=== PATIENT | female | born 1980 | race Caucasian/White ===

== ENCOUNTER → 2022-02-07 | Outpatient (CLI) | payer BC, OTHER ==
[2022-02-07 16:14] LABS: FREE T4 1.22 NG/DL (0.76-1.46); THYROID STIMULATING HORMONE 1.71 uIU/ML (0.358-3.740)
== END ==
LOC: M PLALAB 13:30
PROVIDERS: ATTEND Nurse Practitioner Adult Health
DX: E06.3 Autoimmune thyroiditis (principal)

== ENCOUNTER 2022-03-03 18:13 | Emergency (ER) | payer BC, OTHER ==
[~2022-03-03] VITALS: Ht 167.6 cm; Wt 87.7 kg
[2022-03-03] MEDS ORDERED: FOLI800C PO (18:32)
[2022-03-03] MEDS ORDERED: SYNT125T PO (18:32)
[2022-03-03] MEDS ORDERED: D3 +TAB PO (18:32)
[2022-03-03] MEDS ORDERED: MULT-90 PO (18:32)
[2022-03-03] MEDS ORDERED: [UNRECOGNIZED DRUG - CODE] PO (18:32)
[2022-03-03 19:06] LABS: BASO # 0.1 10^3/uL (0.0-0.2); BASO % 0.9 % (0.0-1.0); EOS # 0.1 10^3/uL (0.0-0.5); EOS % 1.5 % (0.0-3.0); HEMATOCRIT 41.8 % (36.0-47.0); HEMOGLOBIN 13.5 g/dl (12.0-15.5); LYMPH # 2.6 10^3/uL (1.5-5.0); LYMPH % 31.5 % (24.0-44.0); MEAN CORPUSCULAR HEMOGLOBIN 28.7 pg (27.0-33.0); MEAN CORPUSCULAR HGB CONC 32.3 g/dl (32.0-36.5); MEAN CORPUSCULAR VOLUME 88.9 fl (80.0-96.0); MONO # 0.7 10^3/uL (0.0-0.8); MONO % 8.5 % (2.0-8.0); NEUTROPHILS # 4.7 10^3/uL (1.5-8.5); NEUTROPHILS % 57.5 % (36.0-66.0); PLATELET COUNT, AUTOMATED 230 10^3/uL (150-450); WHITE BLOOD COUNT 8.2 10^3/uL (4.0-10.0)
[2022-03-03 19:58] LABS: LDH LACTATE DEHYDROGENASE 152 U/L (120-246)
[2022-03-03 19:59] LABS: ALBUMIN 3.7 G/DL (3.2-5.2); ALKALINE PHOSPHATASE 120 U/L (46-116); ALT/SGPT 31 U/L (7.0-40); AST/SGOT 22 U/L (<34); BILIRUBIN,TOTAL 0.5 MG/DL (0.3-1.2); BLOOD UREA NITROGEN 19 MG/DL (9-23); CALCIUM LEVEL 9.5 MG/DL (8.5-10.1); CARBON DIOXIDE LEVEL 27 MMOL/L (20-31); CHLORIDE LEVEL 104 MMOL/L (98-107); CREATININE FOR GFR 0.61 MG/DL (0.55-1.30); GLOMERULAR FILTRATION RATE > 60.0 (>58); GLUCOSE, FASTING 92 MG/DL (60-100); POTASSIUM SERUM 4.2 MMOL/L (3.5-5.1); SODIUM LEVEL 139 MMOL/L (136-145); TOTAL PROTEIN 6.7 G/DL (5.7-8.2)
[2022-03-03 20:24] VITALS: BP 128/83
== END 2022-03-03 20:31 | disposition home or self-care (01) ==
LOC: M ED 18:13
DX: R59.0 Localized enlarged lymph nodes (principal); Z85.3 Personal history of malignant neoplasm of breast; E03.9 Hypothyroidism, unspecified; Z79.890 Hormone replacement therapy; Z79.899 Other long term (current) drug therapy; Z88.2 Allergy status to sulfonamides

== ENCOUNTER 2022-03-21 11:06 | Emergency (ER) | payer BC, OTHER ==
[~2022-03-21] VITALS: Ht 167.6 cm; Wt 87.0 kg
[2022-03-21 11:06] VITALS: BP_DIAS 58
[~2022-03-21 11:06] MED LIST: D3 +TAB PO; FOLI800C PO; IBUP80TA PO; MULT-90 PO; SYNT125T PO; [UNRECOGNIZED DRUG - CODE] PO; collagen
[2022-03-21 16:04] VITALS: BP_SYST 149
== END 2022-03-21 16:16 | disposition home or self-care (01) ==
LOC: M ED 11:06
DX: N83.291 Other ovarian cyst, right side (principal); Z86.19 Personal history of other infectious and parasitic diseases; Z85.3 Personal history of malignant neoplasm of breast; E03.9 Hypothyroidism, unspecified; Z79.890 Hormone replacement therapy; Z79.899 Other long term (current) drug therapy; Z88.2 Allergy status to sulfonamides

== ENCOUNTER → 2022-04-13 | Outpatient (CLI) | payer BC, OTHER ==
[~2022-04-13] MED LIST changes: +COQ-100C5 PO; +DOXY100T PO; +FLUC150T9 PO; +METR-265 PO; +NORE5TAB PO; +PRO1CAP PO; +PROB250C PO; +VALA500T5 PO; +VITA100093 PO
== END ==
LOC: M WHC 12:54
PROVIDERS: ATTEND Surgery
DX: M79.89 Other specified soft tissue disorders (principal)

== ENCOUNTER 2022-04-15 18:33 | Inpatient (IN) | payer BC, OTHER ==
[~2022-04-15] VITALS: Ht 165.1 cm; Wt 86.0 kg
[~2022-04-15 18:33] MED LIST changes: -COQ-100C5 PO; -DOXY100T PO; -FLUC150T9 PO; -METR-265 PO; -NORE5TAB PO; -PRO1CAP PO; -PROB250C PO; -VALA500T5 PO; -VITA100093 PO
[2022-04-16 01:15] LABS: BASO % 0.2 % (0.0-1.0); LYMPH # 0.5 10^3/uL (1.5-5.0); LYMPH % 2.8 % (24.0-44.0); MEAN CORPUSCULAR HEMOGLOBIN 29.2 pg (27.0-33.0); MEAN CORPUSCULAR HGB CONC 32.6 g/dl (32.0-36.5); MEAN CORPUSCULAR VOLUME 89.6 fl (80.0-96.0); MONO # 0.8 10^3/uL (0.0-0.8); MONO % 4.4 % (2.0-8.0); NEUTROPHILS # 16.6 10^3/uL (1.5-8.5); NEUTROPHILS % 92.2 % (36.0-66.0); PLATELET COUNT, AUTOMATED 241 10^3/uL (150-450)
[2022-04-16 01:30] LABS: LIPASE 26 U/L (12-53)
[2022-04-16 01:32] LABS: AMYLASE 75 U/L (30-118); BLOOD UREA NITROGEN 15 MG/DL (9-23); CALCIUM LEVEL 9.2 MG/DL (8.5-10.1); CARBON DIOXIDE LEVEL 24 MMOL/L (20-31); CHLORIDE LEVEL 103 MMOL/L (98-107); CREATININE FOR GFR 0.69 MG/DL (0.55-1.30); GLOMERULAR FILTRATION RATE > 60.0 (>58); GLUCOSE, FASTING 118 MG/DL (60-100); POTASSIUM SERUM 4.4 MMOL/L (3.5-5.1); SODIUM LEVEL 138 MMOL/L (136-145)
[2022-04-16 01:36] LABS: HCG, SERUM QUALITATIVE NEGATIVE (NEGATIVE)
[2022-04-16] MEDS ORDERED: NS 1,000 ML IV SCH (03:25)
[2022-04-16] MEDS ORDERED: MORPHINE 4 MG/ML 1ML VIAL IV ONE (03:25)
[2022-04-16] MEDS ORDERED: cefTRIAXone SOD 1 GM in D5W MINI-BAG PLUS 50 ML IV ONE (03:25)
[2022-04-16] MEDS ORDERED: ONDANSETRON 4MG 2ML VIAL IV ONE (04:05)
[2022-04-16] MEDS ORDERED: PRO1CAP PO (04:17)
[2022-04-16] MEDS ORDERED: NORE5TAB PO (04:18)
[2022-04-16] MEDS ORDERED: VITA100093 PO (04:18)
[2022-04-16] MEDS ORDERED: HOME MED LIST COMPLETE! XX SCH ×2 (04:20→12:10)
[2022-04-16] MEDS: NS 1,000 ML IV SCH ×2 (04:25→10:41)
[2022-04-16] MEDS: LEVOTHYROXINE 125MCG TABLET (0.125MG) PO SCH (06:00)
[2022-04-16] MEDS ORDERED: ENOXAPARIN 40MG/0.4ML SYRINGE (J1650 PER 10MG) SC SCH (09:00)
[2022-04-16] MEDS: ACETAMINOPHEN TAB 650MG DOSE (2X325MG) PO PRN ×2 (09:12→14:33)
[2022-04-16] MEDS ORDERED: KETOROLAC 30 MG/ML 1ML VIAL IV PRN (09:50)
[2022-04-16] MEDS ORDERED: MOM 30ML SUSPENSION UDC PO ONE (09:50)
[2022-04-16 10:17] VITALS: BP 134/67
[2022-04-16] MEDS: SENOKOT S TAB PO SCH ×2 (11:49→21:38)
[2022-04-16] MEDS ORDERED: COQ-100C5 PO (12:10)
[2022-04-16 16:00] VITALS: BP 141/70
[2022-04-16] MEDS: KETOROLAC 30 MG/ML 1ML VIAL IV PRN ×2 (16:40→23:09)
[2022-04-16] MEDS ORDERED: DEXTROSE 50% 50ML SYRINGE IV PRN (17:00)
[2022-04-16] MEDS ORDERED: GLUCAGON INJ 1MG VIAL SC PRN (17:00)
[2022-04-16] MEDS ORDERED: D5W/0.45% SODIUM CHLORIDE 1,000 ML IV SCH (17:00)
[2022-04-16] MEDS ORDERED: GLUCOSE 4GM CHEW TABLET PO PRN (17:00)
[2022-04-16] MEDS: DOXYCYCLINE HYCLATE 100 MG in D5W MINI-BAG PLUS 100 ML IV SCH (18:58)
[2022-04-16 20:00] VITALS: BP 134/61
[2022-04-16] MEDS ORDERED: CALCIUM CARBONATE 500 MG CHEW U/D PO PRN (20:50)
[2022-04-16] MEDS: valACYclovir HCL 500 MG TAB PO SCH (21:38)
[2022-04-16] MEDS: LR 1,000 ML IV SCH (21:38)
[2022-04-16] MEDS: metroNIDAZOLE 500 MG in IV 1 EA IV SCH (21:39)
[2022-04-17] VITALS: BP 134/64
[2022-04-17 04:00] VITALS: BP 134/63
[2022-04-17] MEDS: cefTRIAXone SOD 1 GM in D5W MINI-BAG PLUS 50 ML IV SCH (04:07)
[2022-04-17] MEDS: ACETAMINOPHEN TAB 650MG DOSE (2X325MG) PO PRN ×2 (04:25→13:13)
[2022-04-17] MEDS: metroNIDAZOLE 500 MG in IV 1 EA IV SCH ×3 (05:13→20:50)
[2022-04-17] MEDS: KETOROLAC 30 MG/ML 1ML VIAL IV PRN ×3 (05:13→21:39)
[2022-04-17] MEDS: LEVOTHYROXINE 125MCG TABLET (0.125MG) PO SCH (05:41)
[2022-04-17] MEDS: LR 1,000 ML IV SCH ×3 (06:00→20:49)
[2022-04-17] MEDS: DOXYCYCLINE HYCLATE 100 MG in D5W MINI-BAG PLUS 100 ML IV SCH ×2 (06:56→18:58)
[2022-04-17 07:19] LABS: HEMATOCRIT 36.9 % (36.0-47.0); MEAN CORPUSCULAR HEMOGLOBIN 28.6 pg (27.0-33.0); MEAN CORPUSCULAR HGB CONC 31.4 g/dl (32.0-36.5); MEAN CORPUSCULAR VOLUME 90.9 fl (80.0-96.0); PLATELET COUNT, AUTOMATED 213 10^3/uL (150-450); RED BLOOD COUNT 4.06 10^6/uL (4.00-5.40); WHITE BLOOD COUNT 11.2 10^3/uL (4.0-10.0)
[2022-04-17 07:27] LABS: HEMOGLOBIN 11.6 g/dl (12.0-15.5)
[2022-04-17 07:57] LABS: ALBUMIN 2.8 G/DL (3.2-5.2); ALKALINE PHOSPHATASE 75 U/L (46-116); ALT/SGPT 12 U/L (7.0-40); AST/SGOT 15 U/L (<34); BILIRUBIN,TOTAL 0.8 MG/DL (0.3-1.2); BLOOD UREA NITROGEN 12 MG/DL (9-23); CALCIUM LEVEL 8.8 MG/DL (8.5-10.1); CARBON DIOXIDE LEVEL 22 MMOL/L (20-31); CHLORIDE LEVEL 107 MMOL/L (98-107); CREATININE FOR GFR 0.61 MG/DL (0.55-1.30); GLOMERULAR FILTRATION RATE > 60.0 (>58); GLUCOSE, FASTING 98 MG/DL (60-100); POTASSIUM SERUM 4.1 MMOL/L (3.5-5.1); SODIUM LEVEL 139 MMOL/L (136-145); TOTAL PROTEIN 5.7 G/DL (5.7-8.2)
[2022-04-17 08:00] VITALS: BP 117/60
[2022-04-17] MEDS: SENOKOT S TAB PO SCH ×2 (08:40→21:00)
[2022-04-17] MEDS: valACYclovir HCL 500 MG TAB PO SCH ×2 (08:55→20:50)
[2022-04-17 13:00] VITALS: BP 132/62
[2022-04-17 20:00] VITALS: BP 126/58
[2022-04-18] VITALS: BP 134/71
[2022-04-18 04:00] VITALS: BP 124/78
[2022-04-18] MEDS: ACETAMINOPHEN TAB 650MG DOSE (2X325MG) PO PRN (04:35)
[2022-04-18] MEDS: cefTRIAXone SOD 1 GM in D5W MINI-BAG PLUS 50 ML IV SCH (06:00)
[2022-04-18] MEDS: LR 1,000 ML IV SCH (06:00)
[2022-04-18] MEDS: DOXYCYCLINE HYCLATE 100 MG in D5W MINI-BAG PLUS 100 ML IV SCH (06:00)
[2022-04-18] MEDS: metroNIDAZOLE 500 MG in IV 1 EA IV SCH (06:00)
[2022-04-18] MEDS: LEVOTHYROXINE 125MCG TABLET (0.125MG) PO SCH (06:05)
[2022-04-18 08:00] VITALS: BP 141/95
[2022-04-18] MEDS ORDERED: metroNIDAZOLE (FLAGYL) 500MG TABLET PO SCH (09:00)
[2022-04-18] MEDS: SENOKOT S TAB PO SCH (09:00)
[2022-04-18] MEDS ORDERED: DOXYCYCLINE HYCLATE 100MG TABLET PO SCH (09:00)
[2022-04-18] MEDS: valACYclovir HCL 500 MG TAB PO SCH (09:10)
[2022-04-18] MEDS ORDERED: DOXY100T PO (10:25)
[2022-04-18] MEDS ORDERED: METR-265 PO (10:25)
[2022-04-18] MEDS ORDERED: VALA500T5 PO (10:25)
[2022-04-18] MEDS ORDERED: PROB250C PO (11:07)
[2022-04-18] MEDS ORDERED: FLUC150T9 PO (11:09)
== END 2022-04-18 13:30 | disposition home or self-care (01) | DRG 531 ==
LOC: M ED 18:33 → M ED INP 04-16 04:23 → ENRESERV 04-16 09:10 → M PED 04-16 10:17
PROVIDERS: ADMIT Family Medicine; ATTEND Internal Medicine
DX: N70.93 Salpingitis and oophoritis, unspecified (principal); K56.7 Ileus, unspecified; N39.0 Urinary tract infection, site not specified; E03.9 Hypothyroidism, unspecified; R21 Rash and other nonspecific skin eruption; N83.511 Torsion of right ovary and ovarian pedicle; N83.201 Unspecified ovarian cyst, right side; B95.5 Unspecified streptococcus as the cause of diseases classified elsewhere; K59.00 Constipation, unspecified; B00.9 Herpesviral infection, unspecified; Z85.3 Personal history of malignant neoplasm of breast; Z90.13 Acquired absence of bilateral breasts and nipples; Z79.890 Hormone replacement therapy; Z79.899 Other long term (current) drug therapy; Z88.2 Allergy status to sulfonamides

== ENCOUNTER → 2022-04-23 | Outpatient (CLI) | payer BC, OTHER ==
[~2022-04-23] MED LIST changes: +COQ-100C5 PO; +DOXY100T PO; +FLUC150T9 PO; +METR-265 PO; +NORE5TAB PO; +PRO1CAP PO; +PROB250C PO; +VALA500T5 PO; +VITA100093 PO
== END ==
LOC: M PLALAB 08:29
PROVIDERS: ATTEND Surgery
DX: Z85.3 Personal history of malignant neoplasm of breast (principal); Z80.3 Family history of malignant neoplasm of breast; Z13.9 Encounter for screening, unspecified

== ENCOUNTER → 2022-05-01 | Outpatient (CLI) | payer BC, OTHER ==
[~2022-05-01] MED LIST changes: +CVS1CAP2 PO; +PROHANCE 279.3MG/ML 15ML VIAL ONE; +PROHANCE 279.3MG/ML 5ML VIAL ONE; +VALT1TAB PO; -collagen; +collagen PO
== END ==
LOC: M PLAIMG 13:13
PROVIDERS: ATTEND Surgery
DX: R59.0 Localized enlarged lymph nodes (principal); Z98.82 Breast implant status; M79.89 Other specified soft tissue disorders; Z85.3 Personal history of malignant neoplasm of breast
CPT/HCPCS: A9576; C8908

== ENCOUNTER → 2022-05-07 | Outpatient (CLI) | payer BC, OTHER ==
[~2022-05-07] MED LIST changes: +COLA100C5 PO; +ONDA4TAB6 PO; +PERC5TAB12 PO; -PROHANCE 279.3MG/ML 15ML VIAL ONE; -PROHANCE 279.3MG/ML 5ML VIAL ONE
== END ==
LOC: M EKG 09:52
PROVIDERS: ATTEND Internal Medicine
DX: Z01.818 Encounter for other preprocedural examination (principal); R00.1 Bradycardia, unspecified

== ENCOUNTER → 2022-05-07 | Outpatient (CLI) | payer BC, OTHER ==
[~2022-05-07] MED LIST changes: -COLA100C5 PO; -ONDA4TAB6 PO; -PERC5TAB12 PO
== END ==
LOC: M LABSMTC 09:19
PROVIDERS: ATTEND Anesthesiology
DX: Z01.812 Encounter for preprocedural laboratory examination (principal); Z11.52 Encounter for screening for COVID-19

== ENCOUNTER → 2022-05-08 | Outpatient (REF) | payer BC, OTHER ==
[~2022-05-08] MED LIST changes: +COLA100C5 PO; +ONDA4TAB6 PO; +PERC5TAB12 PO
== END ==
LOC: M SFHCWAGY 17:15
PROVIDERS: ATTEND Obstetrics & Gynecology
DX: Z12.4 Encounter for screening for malignant neoplasm of cervix (principal); R87.615 Unsatisfactory cytologic smear of cervix
CPT/HCPCS: 87624; G0123

== ENCOUNTER → 2022-05-10 | Outpatient (CLI) | payer BC, OTHER | LOC: M WHC 10:41 | PROVIDERS: ATTEND Obstetrics & Gynecology | DX: N83.201 Unspecified ovarian cyst, right side (principal); N83.202 Unspecified ovarian cyst, left side ==

== ENCOUNTER 2022-05-11 10:21 | Day surgery (SDC) | payer BC, OTHER ==
[~2022-05-11] VITALS: Ht 167.6 cm; Wt 83.9 kg
[~2022-05-11 10:21] MED LIST changes: -COLA100C5 PO; -ONDA4TAB6 PO; -PERC5TAB12 PO
[2022-05-11] MEDS ORDERED: LR 1,000 ML IV SCH ×2 (10:40→17:40)
[2022-05-11 11:26] LABS: HEMATOCRIT 43.5 % (36.0-47.0); MEAN CORPUSCULAR HEMOGLOBIN 29.2 pg (27.0-33.0); MEAN CORPUSCULAR HGB CONC 32.2 g/dl (32.0-36.5); MEAN CORPUSCULAR VOLUME 90.6 fl (80.0-96.0); PLATELET COUNT, AUTOMATED 236 10^3/uL (150-450); WHITE BLOOD COUNT 5.9 10^3/uL (4.0-10.0)
[2022-05-11] MEDS ORDERED: ONDANSETRON 4MG 2ML VIAL As Ordered ONE (13:02)
[2022-05-11] MEDS ORDERED: LIDOCAINE 2% 100MG/5ML SDV (FOR ANES.) As Ordered ONE (13:02)
[2022-05-11] MEDS ORDERED: MIDAZOLAM INJ 2MG/2ML VIAL As Ordered ONE (13:02)
[2022-05-11] MEDS ORDERED: propofoL 200 MG/20 ML VIAL As Ordered ONE (13:02)
[2022-05-11] MEDS ORDERED: fentaNYL 100 MCG/2 ML INJECTION As Ordered ONE ×2 (13:02→15:48)
[2022-05-11] MEDS ORDERED: ROCURONIUM BROMIDE 50MG/5ML VIAL As Ordered ONE ×2 (13:02→15:17)
[2022-05-11] MEDS ORDERED: HYDROmorphone HCL 2MG/ML 1ML VIAL As Ordered ONE (13:02)
[2022-05-11] MEDS ORDERED: KETOROLAC 60MG 2ML VIAL As Ordered ONE (13:02)
[2022-05-11] MEDS ORDERED: ACETAMINOPHEN 1000MG 100ML IV BAG As Ordered ONE (13:10)
[2022-05-11] MEDS ORDERED: BUPIVACAINE HCL 0.25% 30ML VIAL As Ordered ONE (14:10)
[2022-05-11] MEDS ORDERED: METHYLENE BLUE 0.5% (5MG/ML) 10 ML AMP (PROVAYBLUE) As Ordered ONE ×2 (14:10→14:20)
[2022-05-11] MEDS ORDERED: SILVER NITRATE APPLICATOR (1 = QTY 10) As Ordered ONE (14:12)
[2022-05-11] MEDS ORDERED: ePHEDrine SULFATE 25 MG/5 ML(5MG/ML) SYRINGE As Ordered ONE (15:10)
[2022-05-11] MEDS ORDERED: SUGAMMADEX SODIUM 500 MG/5 ML VIAL (BRIDION) As Ordered ONE (15:17)
[2022-05-11] MEDS ORDERED: DESFLURANE 240 ML INHALANT As Ordered ONE (15:41)
[2022-05-11] MEDS ORDERED: SEVOFLURANE INHAL SOLN 250 ML BTL As Ordered ONE (15:42)
[2022-05-11] MEDS ORDERED: ceFAZolin 2 GM/D5W 50 ML IV BAG As Ordered ONE (17:09)
[2022-05-11] MEDS ORDERED: oxyCODONE 5MG TAB PO PRN (17:40)
[2022-05-11] MEDS ORDERED: ONDANSETRON 4MG 2ML VIAL IV PRN (17:40)
[2022-05-11] MEDS ORDERED: fentaNYL 100 MCG/2 ML INJECTION IV PRN (17:40)
[2022-05-11] MEDS ORDERED: METOCLOPRAMIDE INJ 10MG/2ML VIAL IV PRN (17:40)
[2022-05-11 19:29] VITALS: BP 128/69
[2022-05-11] MEDS ORDERED: IBUP80TA PO (19:36)
[2022-05-11] MEDS ORDERED: PERC5TAB12 PO (19:37)
[2022-05-11] MEDS ORDERED: ONDA4TAB6 PO (19:38)
[2022-05-11] MEDS ORDERED: COLA100C5 PO (19:39)
== END 2022-05-11 19:39 | disposition home or self-care (01) ==
LOC: M SDC 10:21
PROVIDERS: ATTEND Obstetrics & Gynecology
DX: N83.202 Unspecified ovarian cyst, left side (principal); N80.122 Deep endometriosis of left ovary; N97.1 Female infertility of tubal origin; K66.0 Peritoneal adhesions (postprocedural) (postinfection); E06.9 Thyroiditis, unspecified; Z85.3 Personal history of malignant neoplasm of breast; Z92.21 Personal history of antineoplastic chemotherapy; Z90.13 Acquired absence of bilateral breasts and nipples; Z88.2 Allergy status to sulfonamides; Z79.899 Other long term (current) drug therapy; Z79.890 Hormone replacement therapy
CPT/HCPCS: 36415; 58350; 58558; 58662; 81025; 85027; 86850; 86900; 86901; 88305; J0131; J0690; J1100; J1170; J1885; J2250; J2405; J3010; Q9968; S0020

== ENCOUNTER → 2022-06-19 | Outpatient (CLI) | payer BC, OTHER ==
[~2022-06-19] MED LIST changes: +COLA100C5 PO; +ISOVUE-370 76% 100ML VIAL As Ordered ONE; +ONDA4TAB6 PO; +PERC5TAB12 PO
== END ==
LOC: M RADPRO 11:24
PROVIDERS: ATTEND Obstetrics & Gynecology
DX: N97.1 Female infertility of tubal origin (principal)
CPT/HCPCS: 58340; 74740; Q9967

== ENCOUNTER → 2022-06-21 | Outpatient (REF) | payer BC, OTHER ==
[~2022-06-21] MED LIST changes: -ISOVUE-370 76% 100ML VIAL As Ordered ONE
[2022-06-21 19:20] LABS: APPEARANCE, URINE CLEAR (CLEAR); BACTERIA, URINE AUTO NEGATIVE (NEGATIVE); BILIRUBIN, URINE AUTO NEGATIVE (NEGATIVE); BLOOD, URINE BLOOD NEGATIVE (NEGATIVE); COLOR, URINE YELLOW (YELLOW); GLUCOSE, URINE (UA) AUTO NEGATIVE (NEGATIVE); KETONE, URINE AUTO TRACE mg/dL (NEGATIVE); LEUKOCYTE ESTERASE, URINE AUTO NEGATIVE (NEGATIVE); NITRITE, URINE AUTO NEGATIVE (NEGATIVE); PROTEIN, URINE AUTO NEGATIVE (NEGATIVE); RBC, URINE AUTO 0 /HPF (0-3); SPECIFIC GRAVITY URINE AUTO 1.004 (1.002-1.035); SQUAMOUS EPITHELIAL CELL UR AU 0 /HPF (0-6); UROBILINOGEN, URINE AUTO 0.2 mg/dL (0.0-2.0); WBC, URINE AUTO 0 /HPF (0-3)
== END ==
LOC: M SFHCWAGY 17:45
PROVIDERS: ATTEND Obstetrics & Gynecology
DX: R30.0 Dysuria (principal)

== ENCOUNTER 2022-06-27 10:43 | Outpatient (RCR) | payer BC, OTHER | END 2022-06-29 | LOC: M PT 10:43 | PROVIDERS: ATTEND Surgery | DX: I89.0 Lymphedema, not elsewhere classified (principal) ==

== ENCOUNTER → 2022-08-08 | Outpatient (CLI) | payer BC, OTHER ==
[2022-08-08 18:17] LABS: C REACTIVE PROTEIN QUANTITATIV < 0.40 MG/DL (<1.0)
[2022-08-08 18:18] LABS: TOTAL T3 100.4 NG/DL (60.0-181.0)
[2022-08-08 18:19] LABS: FREE T3 3.1 PG/ML (2.3-4.2); RHEUMATOID FACTOR QUANT 6.9 IU/ML (<14); THYROID PEROXIDASE ANTIBODY 928 U/ML (<60.0); THYROID STIMULATING HORMONE 3.362 uIU/ML (0.55-4.78)
[2022-08-08 18:21] LABS: FREE T4 1.36 NG/DL (0.89-1.76)
== END ==
LOC: M PLALAB 15:35
PROVIDERS: ATTEND Nurse Practitioner Adult Health
DX: E06.3 Autoimmune thyroiditis (principal)

== ENCOUNTER → 2022-08-28 | Outpatient (POV) | payer BC, OTHER ==
[~2022-08-28] VITALS: Ht 167.6 cm; Wt 84.0 kg
[2022-08-28 09:15] VITALS: BP 125/70
== END ==
LOC: M IRPOV 09:04
PROVIDERS: ATTEND Radiology Diagnostic Radiology
DX: R22.43 Localized swelling, mass and lump, lower limb, bilateral (principal); E06.3 Autoimmune thyroiditis; Z85.3 Personal history of malignant neoplasm of breast; Z88.2 Allergy status to sulfonamides

== ENCOUNTER → 2023-01-28 | Outpatient (CLI) | payer BC, OTHER ==
[~2023-01-28] MED LIST changes: +ESTR1TAB PO; +NALT50TA4 PO; +OMEGCAP4 PO; +PROG1CAP8 PO
[2023-01-28 17:58] LABS: BASO # 0.2 10^3/uL (0.0-0.2); BASO % 0.7 % (0.0-1.0); EOS # 0.1 10^3/uL (0.0-0.5); EOS % 0.3 % (0.0-3.0); HEMATOCRIT 43.7 % (36.0-47.0); HEMOGLOBIN 14.1 g/dl (12.0-15.5); LYMPH # 2.4 10^3/uL (1.5-5.0); MEAN CORPUSCULAR HEMOGLOBIN 29.3 pg (27.0-33.0); MEAN CORPUSCULAR HGB CONC 32.3 g/dl (32.0-36.5); MEAN CORPUSCULAR VOLUME 90.7 fl (80.0-96.0); MONO # 0.8 10^3/uL (0.0-0.8); MONO % 3.8 % (2.0-8.0); NEUTROPHILS # 18.2 10^3/uL (1.5-8.5); NEUTROPHILS % 82.6 % (36.0-66.0); PLATELET COUNT, AUTOMATED 323 10^3/uL (150-450); RED BLOOD COUNT 4.82 10^6/uL (4.00-5.40)
[2023-01-28 18:16] LABS: FERRITIN 44.1 NG/ML (7.3-270.7); THYROID STIMULATING HORMONE 0.874 uIU/ML (0.55-4.78)
[2023-01-28 18:17] LABS: TOTAL 25(OH) VITAMIN D 38.4 NG/ML (20.0-100.0)
[2023-01-28 18:19] LABS: FREE T4 1.24 NG/DL (0.89-1.76); TOTAL IRON BINDING CAPACITY 341 UG/DL (250-425)
[2023-01-28 18:20] LABS: ALBUMIN 3.6 G/DL (3.2-5.2); ALKALINE PHOSPHATASE 152 U/L (46-116); ALT/SGPT 28 U/L (7.0-40); AST/SGOT 16 U/L (<34); BILIRUBIN,TOTAL 0.3 MG/DL (0.3-1.2); BLOOD UREA NITROGEN 23 MG/DL (9-23); CARBON DIOXIDE LEVEL 31 MMOL/L (20-31); CHLORIDE LEVEL 101 MMOL/L (98-107); CREATININE FOR GFR 0.55 MG/DL (0.55-1.30); GLOMERULAR FILTRATION RATE > 60.0 (>58); GLUCOSE, FASTING 86 MG/DL (60-100); IRON (FE) 88 UG/DL (50-170); PERCENT SATURATION 25.8 % (13.2-45.0); POTASSIUM SERUM 4.7 MMOL/L (3.5-5.1); SODIUM LEVEL 140 MMOL/L (136-145); TOTAL PROTEIN 7.1 G/DL (5.7-8.2)
== END ==
LOC: M PLALAB 15:49
PROVIDERS: ATTEND Family Medicine
DX: E06.3 Autoimmune thyroiditis (principal); E55.9 Vitamin D deficiency, unspecified

== ENCOUNTER → 2023-02-06 | Outpatient (CLI) | payer BC, OTHER | LOC: M RAD 16:20 | PROVIDERS: ATTEND Family Medicine | DX: M54.12 Radiculopathy, cervical region (principal); M54.16 Radiculopathy, lumbar region; M47.892 Other spondylosis, cervical region ==